=== PATIENT | male | born 1980 | race Caucasian/White ===

== ENCOUNTER → 2019-01-18 14:56 | Outpatient (CLI) | payer OTHER, MEDICAID, SELFPAY ==
--- NOTE | 2019-01-18 15:01 | DI.RAD.S_ITS ---
PROCEDURE: XR CERVICAL SPINE 4V OR 5V INDICATIONS: pain in cervical spine TECHNIQUE: 5 views of the cervical spine acquired. COMPARISON: None. FINDINGS: Bones: No fractures or dislocations to the T1 level. Grade 1 anterolisthesis of C5 on C6 is seen. Flores-white anterolisthesis of C6 on C7 is also noted. Mild degenerative disc disease at C5-6 and C6-7 levels are seen. Oblique images demonstrate no bony foraminal stenoses. Soft tissues: No prevertebral soft tissue swelling. IMPRESSION: Mild degenerative disc disease in lower cervical spine. Grade 1 anterolisthesis at C5-6 and C6-7 levels. No acute compression fracture. No significant bony foraminal stenosis. Dictated by: Juanito Rincon M.D. on 01/18/2019 at 17:06 Approved by: Juanito Rincon M.D. on 01/18/2019 at 17:07
--- NOTE | 2019-01-18 15:01 | DI.MRI.S_ITS ---
PROCEDURE: MR CERVICAL SPINE WO CON INDICATIONS: pain in the cervical spine post injury TECHNIQUE: Noncontrast sagittal T1 spin echo and T2 fast spin echo, sagittal STIR, foraminal oblique sagittal T2 fast spin echo, and axial gradient echo or T2 fast spin echo through the cervical spine. COMPARISON: None. FINDINGS: Image quality: Excellent. Alignment and Curvature: There is normal bony alignment. No spondylolisthesis. Bone Marrow: Marrow demonstrates normal overall signal. No compression fracture. Vertebral body heights are well-preserved. Spinal Cord: Visualized spinal cord has normal size and signal. No cerebellar tonsillar herniation. Paraspinous Soft Tissues: No paravertebral masses. Prevertebral soft tissues are normal in thickness. C2-C3: Normal appearance. C3-C4: Mild diffuse disc bulge is seen with effacement of thecal sac anteriorly, no significant neuroforaminal narrowing. C4-C5: Broad-based disc bulge is seen with mild central canal stenosis and bilateral neuroforaminal narrowing. C5-C6: The mild broad-based disc bulge is seen with mild central canal stenosis and right-sided neuroforaminal narrowing. C6-C7: The diffuse disc bulge is seen with mild central canal stenosis, no significant neuroforaminal narrowing. C7-T1: Normal appearance. IMPRESSION: 1. No marrow edema. No compression fracture or spondylolisthesis. 2. Mild degenerative disc bulge at C3-4 through C6-7 levels causing mild central canal stenosis. Mild bilateral neuroforaminal narrowing is seen at C4-5 level. Mild right-sided neuroforaminal narrowing is noted at C5-6 level. 3. No abnormal cervical spinal cord signal. Dictated by: Juanito Rincon M.D. on 01/18/2019 at 16:32 Approved by: Juanito Rincon M.D. on 01/18/2019 at 16:35
--- NOTE | 2019-01-18 15:01 | DI.MRI.S_ITS ---
PROCEDURE: MR LUMBAR SPINE WO CON INDICATIONS: Lower left sided back pain TECHNIQUE: Noncontrast sagittal T1 spin echo and T2 fast echo, sagittal STIR, axial T1 and T2 fast spin echo through the lumbar spine. In cases with scoliosis, additional coronal T2 fast spin echo may be performed. COMPARISON: None. FINDINGS: Image quality: There are motion artifacts. Alignment and Curvature: There is normal bony alignment. Bone Marrow: Marrow is of normal overall signal. No acute vertebral body compression fractures. Spinal Cord: Conus medullaris terminates at the L1-L2 level. Visualized cord demonstrates normal signal and size. Paraspinous Soft Tissues: No paravertebral masses. L1-L2: Normal appearance. L2-L3: Normal appearance. L3-L4: Normal appearance. L4-L5: Normal appearance. L5-S1: Mild loss of disc height and disc desiccation. There is mild posterior disc bulge. The central canal is patent. No foraminal stenosis.. IMPRESSION: 1. Mild degenerative disc disease at L5-S1. 2. No central canal stenosis. 3. No foramina stenosis. Dictated by: Josiane Arango M.D. on 01/18/2019 at 16:28 Approved by: Josiane Arango M.D. on 01/18/2019 at 17:46
--- NOTE | 2019-01-18 15:01 | DI.RAD.S_ITS ---
PROCEDURE: XR LUMBAR SPINE MIN 4V INDICATIONS: Lumbosacral spondylosis TECHNIQUE: 5 views of the lumbar spine were acquired. COMPARISON: None. FINDINGS: Bones: 5 nonrib-bearing vertebrae are present. There is normal bony alignment. No vertebral body compression fractures. No suspicious bony lesions. Soft tissues: Overlying bowel gas pattern is normal. No suspicious soft tissue calcifications. Oblique images: No pars defects. IMPRESSION: No compression fracture or spondylolisthesis. No pars defect. Dictated by: Juanito Rincon M.D. on 01/18/2019 at 17:08 Approved by: Juanito Rincon M.D. on 01/18/2019 at 17:08
== END ==
PROVIDERS: PCP Nurse Practitioner Gerontology; Visit Provider Physical Medicine & Rehabilitation
DX: M50.11 Cervical disc disorder with radiculopathy, high cervical region (principal); M48.02 Spinal stenosis, cervical region; M43.12 Spondylolisthesis, cervical region; M54.5 Low back pain; M51.17 Intervertebral disc disorders with radiculopathy, lumbosacral region; M47.27 Other spondylosis with radiculopathy, lumbosacral region
CPT/HCPCS: 72050; 72110; 72141; 72148